=== PATIENT | female | born 1990 | race Caucasian/White ===

== ENCOUNTER → 2017-01-11 | Outpatient (CLI) | payer BC ==
--- NOTE | 2017-01-11 13:00 | US ---
EXAMINATION TYPE: US thyroid st tissue head/neck DATE OF EXAM: 01/11/2017 11:22 AM COMPARISON: 02/14/2016 CLINICAL HISTORY: Swelling mass palpable abnormality head/neckR22.0. GLAND SIZE: Right Lobe: 5.6 x 2.1 x 1.4 cm Overall Parenchyma: heterogenous Left Lobe: 5.4 x 0.8 x 1.3 cm Overall Parenchyma: heterogeneous Isthmus Thickness: 0.2 cm NODULES RIGHT: # of nodules measured on right: 1 1. 0.7 X 0.4 x 0.3 cm hypoechoic cystic nodule at the upper pole with well-defined margins; present with microcalcifications. This nodule is wider than tall and shows no intranodular vascularity. Prior size: 0.9 x 0.4 x 0.5 cm LEFT: # of nodules measured on left: 1 1. 0.5 X 0.5 x 0.3 cm hypoechoic cystic nodule at the mid pole with well-defined margins; present w ith microcalcifications. This nodule is wider than tall and shows no intranodular vascularity. Prior size: 0.9 x 0.4 x 0.4 cm ISTHMUS: # of nodules measured in the isthmus: 0 Bilateral neck scanned, no evidence of lymphadenopathy. Multiple small cystic areas bilaterally, measured largest per side. IMPRESSION: Essentially stable scattered subcentimeter nodules.
== END | disposition home or self-care (01) ==
LOC: RADUSWWP 10:53
PROVIDERS: ATTEND Family Medicine
DX: E04.2 Nontoxic multinodular goiter (principal)
CPT/HCPCS: 76536